=== PATIENT | male | born 1995 | race Caucasian/White ===

== ENCOUNTER 2017-10-11 17:21 | Emergency (ER) | payer BC ==
[2017-10-11 19:05] VITALS: BP 123/71
--- NOTE | 2017-10-11 20:05 | UC ---
Throat Pain/Nasal Ryland HPI - HPI Summary HPI Summary: Pt states has nasal congestion x 1 week no ear pain + PND pressure frontal BROWN no fever, chills + fatigue + coughing from PND No OTC meds h/o sinus - feels simiar pt has previously used floanse with relief - did not take during this illness pt's medications reviewed this visit - History of Current Complaint Chief Complaint: UCRespiratory Stated Complaint: SINUS COMPLAINT Time Seen by Provider: 10/11/17 20:04 Hx Obtained From: Patient Onset/Duration: Sudden Onset Severity: Moderate Pain Intensity: 6 Pain Scale Used: 0-10 Numeric Cough: Nonproductive Associated Signs & Symptoms: Positive: Sinus Discomfort, Nasal Discharge - Allergies/Home Medications Allergies/Adverse Reactions: Allergies Allergy/AdvReac Type Severity Reaction Status Date / Time dogs, cats, mold Allergy Unknown Uncoded 01/10/17 18:22 Reaction Details Home Medications: Home Medications Ibuprofen [Goodsense Ibuprofen] 400 mg PO 10/11/17 [History] PMH/Surg Hx/FS Hx/Imm Hx Previously Healthy: Yes - Surgical History Surgical History: Yes Surgery Procedure, Year, and Place: EAR TUBES. T&A - Family History Known Family History: Positive: None Family History: Rhuematoid arthritis - Social History Occupation: Employed Full-time Lives: With Family Alcohol Use: Rare Substance Use Type: None Smoking Status (MU): Never Smoked Tobacco Household Exposure Type: Cigarettes - Immunization History Most Recent Influenza Vaccination: none Vaccination Up to Date: Yes Review of Systems Constitutional: Negative, Fatigue Skin: Negative Eyes: Negative ENT: Nasal Discharge, Sinus Congestion Respiratory: Negative Cardiovascular: Negative Neurovascular: Negative Musculoskeletal: Negative Psychological: Negative All Other Systems Reviewed And Are Negative: Yes Physical Exam Triage Information Reviewed: Yes Appearance: Well-Appearing, No Pain Distress, Well-Nourished Vital Signs: Initial Vital Signs Temp 97.8 F 10/11/17 19:02 Pulse 61 10/11/17 19:02 Resp 18 10/11/17 19:02 BP 123/71 10/11/17 19:02 Pulse Ox 100 10/11/17 19:02 Vital Signs Reviewed: Yes Eye Exam: Normal Eyes: Positive: Conjunctiva Clear ENT: Positive: Hearing grossly normal, Pharynx normal, Pharyngeal erythema, Nasal congestion, Sinus tenderness - frontal, Uvula midline, Other - + PND no exudate, no erythema Dental Exam: Normal Neck exam: Normal Neck: Positive: Supple, Nontender, No Lymphadenopathy Respiratory Exam: Normal Respiratory: Positive: Chest non-tender, Lungs clear, Normal breath sounds, No respiratory distress, No accessory muscle use Cardiovascular Exam: Normal Cardiovascular: Positive: RRR, No Murmur, Pulses Normal Abdominal Exam: Normal Abdomen Description: Positive: Nontender, No Organomegaly, Soft Bowel Sounds: Positive: Present Musculoskeletal Exam: Normal Neurological Exam: Normal Psychological Exam: Normal Psychological: Positive: Normal Response To Family Skin Exam: Normal Throat Pain/Nasal Course/Dx - Course Course Of Treatment: pt with sinus congestion x 10 days. on exam turbinates inflammed and boggy. + PND. + frontal sinus discomfort. Rx amox. pt has flonase. motrin/apap. humidify. secretion precaution - Differential Dx/Diagnosis Provider Diagnoses: sinusitis Discharge - Discharge Plan Condition: Stable Disposition: HOME Prescriptions: Amoxicillin PO (*) [Amoxicillin 875 MG (*)] 875 mg PO BID #20 tab Patient Education Materials: Rhinosinusitis (ED) Referrals: Debbie Sanchez MD [Primary Care Provider] - Additional Instructions: - Stay well hydrated. Drink plenty of non-alcoholic, non-caffinated beverages. - Alternate ibuprofen (Advil, Motrin) 600mg and Tylenol every 3 hours for pain or fever. Take with food. Do NOT take for more than 4-5 days. - These infections are spread by secretions - do NOT share eating or drinking utensils - clean items you share with other people such as cell phones, computer mouse, TV remote, computer tablets, etc. After you have taken Amoxicillin for 3 days, change your toothbrush and your pillowcase. - get plenty of restful sleep - humidify the air in the room where you sleep - boil water, run a hot steam shower, vaporizer, cups of water by heat register - use flonase, 2 sprays each nostril, daily - contact your doctor or return with questions or concerns
== END 2017-10-11 20:18 | disposition home or self-care (01) ==
LOC: UCCORT 17:21
DX: J32.9 Chronic sinusitis, unspecified (principal); Z77.22 Contact with and (suspected) exposure to environmental tobacco smoke (acute) (chronic)
CPT/HCPCS: 99212; G0463

== ENCOUNTER 2018-05-21 14:21 | Emergency (ER) | payer BC ==
[2018-05-21 15:15] VITALS: BP 118/62
[2018-05-21] MEDS ORDERED: Ketorolac INJ* 30 MG/ML 1 ML VIAL IM ONE (15:51)
--- NOTE | 2018-05-21 15:59 | UC ---
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 He states he took several ibuprofen yesterday but the medication did not relief his pain and he could not sleep all night. Currently pain is 7-8/10 and is in the midline. Denies numbness, weakness or tingling. Denies nausea, vomiting chills fever or burning urination. - History Of Current Complaint Chief Complaint: UCBackPain Stated Complaint: BACK PAIN Time Seen by Provider: 05/21/18 15:36 Hx Obtained From: Patient Onset/Duration: Sudden Onset, Lasting Days Onset Of Pain: Prior To Arrival Severity Initially: Moderate Severity Currently: Severe Pain Intensity: 8 Mechanism Of Injury: Twisted Aggravating Factor(s): Deep Breathing Alleviating factor(s): Rest Associated Signs And Symptoms: Positive: Negative - Allergies/Home Medications Allergies/Adverse Reactions: Allergies Allergy/AdvReac Type Severity Reaction Status Date / Time dogs, cats, mold Allergy Unknown Uncoded 05/21/18 15:12 Reaction Details PMH/Surg Hx/FS Hx/Imm Hx Previously Healthy: Yes - Surgical History Surgical History: Yes Surgery Procedure, Year, and Place: EAR TUBES. T&A - Family History Known Family History: Positive: Diabetes Family History: Rhuematoid arthritis - Social History Alcohol Use: Rare Substance Use Type: None Smoking Status (MU): Never Smoked Tobacco Household Exposure Type: Cigarettes - Immunization History Most Recent Influenza Vaccination: none Vaccination Up to Date: Yes Review of Systems Constitutional: Negative Musculoskeletal: Arthralgia, Myalgia All Other Systems Reviewed And Are Negative: Yes Physical Exam Triage Information Reviewed: Yes Appearance: Well-Nourished, Pain Distress Vital Signs: Initial Vital Signs Temp 97.9 F 05/21/18 15:08 Pulse 50 05/21/18 15:08 Resp 15 05/21/18 15:08 BP 118/62 05/21/18 15:08 Pulse Ox 99 05/21/18 15:08 Vital Signs Reviewed: Yes Eyes: Positive: Conjunctiva Clear ENT: Positive: Hearing grossly normal Neck: Positive: Supple Respiratory: Positive: Chest non-tender Cardiovascular: Positive: Pulses Normal, Brisk Capillary Refill Abdomen Description: Positive: Nontender Musculoskeletal: Positive: Strength Intact, ROM Intact, No Edema, Other: - tender along spinous process of T11 to L1, hyperextension of flexion of spine does not modify pain. No CVAT, Em negative, SLR negative, DTR rotulian and achillean symmetric and present, sensory is intact, gait normal, tiptoes and stands on heels without problem Psychological Exam: Normal Skin Exam: Normal Truncal Trauma Course/Dx - Course Course Of Treatment: xray of thoracolumbar spine shows alignment of vertebrae and no osseous lesions visualized. Patient was given toradol at with partial alleviation of symptoms pain is 4/10. Patient to take naproxen and tizanidine and f/u with PCP . - Differential Dx/Diagnosis Provider Diagnoses: Back Sprain Discharge - Sign-Out/Discharge Documenting (check all that apply): Patient Departure All imaging exams completed and their final reports reviewed: Yes - Discharge Plan Condition: Stable Disposition: HOME Patient Education Materials: Lower Back Exercises (ED), Tizanidine (By mouth), Naproxen (By mouth) Referrals: Debbie Sanchez MD [Primary Care Provider] - - Billing Disposition and Condition Condition: STABLE Disposition: Home
--- NOTE | 2018-05-21 16:30 | RAD ---
INDICATION: Back pain at the T12 level after lifting a heavy object. COMPARISON: None. TECHNIQUE: 2 views of the thoracic spine were obtained. FINDINGS: The vertebra are in normal alignment. No fracture is seen. Disc spaces appear maintained. . IMPRESSION: No evidence of fracture or subluxation.
== END 2018-05-21 16:52 | disposition home or self-care (01) ==
LOC: UCCORT 14:21
CPT/HCPCS: 72080; 96372; 99212; G0463; J1885